=== PATIENT | female | born 2005 | race Caucasian/White ===

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

== ENCOUNTER 2024-05-14 13:15 | Inpatient (IN) | payer BC ==
[2024-05-14 14:01] LABS: Glucose,Whole Blood 91 mg/dL (70-110)
--- NOTE | 2024-05-14 14:33 | ED ---
General Adult HPI - General Source: patient, RN notes reviewed Mode of arrival: ambulatory Limitations: no limitations <Tracy Russell - Last Filed: 05/14/24 15:56> <Ruby Garland - Last Filed: 05/15/24 15:36> - General Chief complaint: Syncope Stated complaint: Dizziness Time Seen by Provider: 05/14/24 14:33 - History of Present Illness Initial comments: 19-year-old female presented the ER for evaluation of possible syncope or seizure. Patient states since October she will occasionally wake up in the morning and find herself on the ground. She reports she has numerous bite moralez on the sides of her tongue, along with bruising to her forehead and on her body. Patient states last night she woke up in the middle the night and found her bed to be soiled. She believes this was urine. She has no history of seizures but does admit to a history of POTS. She is unsure if she tries to stand up in the middle the night and falls or has a seizure causing her to fall out of bed. She does not remember waking up in the middle the night or how she got there. Patient reports yesterday while at work her boss instructed her to sit down as she was stating she felt dizzy. Her boss states that she sat there for 2 hours "gazed". Patient does not remember this. Patient reports pain to the top of her head currently. She has no dizziness, lightheadedness, nausea, vomiting, chest pain, shortness of breath, abdominal pain, fevers or chills. No other complaints. (Tracy Russell) - Related Data Home Medications Medication Instructions Recorded Confirmed No Known Home Medications 05/14/24 05/14/24 Allergies Allergy/AdvReac Type Severity Reaction Status Date / Time latex Allergy Rash/Hives Verified 05/14/24 17:27 Sulfa (Sulfonamide Allergy Rash/Hives Verified 05/14/24 17:27 Antibiotics) Review of Systems ROS Other: All systems not noted in ROS Statement are negative. <Tracy Russell - Last Filed: 05/14/24 15:56> ROS Other: All systems not noted in ROS Statement are negative. <Ruby Garland - Last Filed: 05/15/24 15:36> ROS Statement: Those systems with pertinent positive or pertinent negative responses have been documented in the HPI. Past Medical History Additional Past Medical History / Comment(s): POTS, eating disorder Past Surgical History: Adenoidectomy Past Psychological History: Anxiety, Depression Smoking Status: Vaper Past Alcohol Use History: None Reported Past Drug Use History: Marijuana <Tracy Russell - Last Filed: 05/14/24 15:56> General Exam Limitations: no limitations General appearance: alert, in no apparent distress Head exam: Present: atraumatic, normocephalic, normal inspection, other (Healing contusion to left congregation) Eye exam: Present: normal appearance, PERRL, EOMI. Absent: scleral icterus, conjunctival injection, periorbital swelling Pupils: Present: normal accommodation ENT exam: Present: normal exam, normal oropharynx (Healed scars on the side of tongue), mucous membranes moist Neck exam: Present: normal inspection. Absent: tenderness, meningismus, lymphadenopathy Respiratory exam: Present: normal lung sounds bilaterally. Absent: respiratory distress, wheezes, rales, rhonchi, stridor Cardiovascular Exam: Present: regular rate, normal rhythm, normal heart sounds. Absent: systolic murmur, diastolic murmur, rubs, gallop, clicks Neurological exam: Present: alert, oriented X3, CN II-XII intact Skin exam: Present: warm, dry, intact, normal color. Absent: rash <Tracy Russell - Last Filed: 05/14/24 15:56> Course Vital Signs 05/14/24 05/14/24 05/14/24 13:37 15:40 16:01 Temperature 98.5 F Pulse Rate 96 75 122 H Respiratory 16 18 14 Rate Blood Pressure 152/100 126/70 130/69 O2 Sat by Pulse 98 99 98 Oximetry 05/14/24 05/14/24 05/14/24 17:41 19:08 21:30 Temperature Pulse Rate 75 68 69 Respiratory 18 18 20 Rate Blood Pressure 130/69 93/62 106/52 O2 Sat by Pulse 95 97 98 Oximetry EKG Findings - EKG Comments: EKG Findings:: EKG taken at 15: 17 showing a sinus rhythm with sinus arrhythmia. No acute ST segment or T wave abnormalities. Normal axis. Ventricular rate 86, RI interval 134, QRS duration 88, QT/QTc 355/399. <Tracy Russell - Last Filed: 05/14/24 15:56> - EKG Comments: EKG Findings:: Sinus tachycardia, rate 101 bpm, RI interval 136 ms, QRS duration 96 ms, QT/QTc 339/397 ms, normal axis, no ST elevations or depressions, T wave does appear somewhat enlarged in lead V3, no delta waves or Brugada pattern present <Ruby Garland - Last Filed: 05/15/24 15:36> Medical Decision Making - Lab Data Result diagrams: 05/14/24 15:04 05/14/24 15:04 <Tracy Russell - Last Filed: 05/14/24 15:56> - Lab Data Result diagrams: 05/15/24 08:07 05/15/24 08:07 <Ruby Garland - Last Filed: 05/15/24 15:36> - Medical Decision Making Was pt. sent in by a medical professional or institution (, PA, MACH[employer], urgent care, hospital, or [facility]...) When possible be specific @ -No Did you speak to anyone other than the patient for history (EMS, parent, family, police, friend...)? What history was obtained from this source @ -No Did you review nursing and triage notes (agree or disagree)? Why? @ -I reviewed and agree with nursing and triage notes Were old charts reviewed (outside hosp., previous admission, EMS record, old EKG, old radiological studies, urgent care reports/EKG's, [facility] records)? Report findings @ -No old charts were reviewed Differential Diagnosis (chest pain, altered mental status, abdominal pain women, abdominal pain men, vaginal bleeding, weakness, fever, dyspnea, syncope, headache, dizziness, GI bleed, back pain, seizure, CVA, palpatations, mental health, musculoskeletal)? @ -Differential Seizure:Recurrent seizure disorder, febrile seizure, alcohol withdrawal, stimulants, meningitis, encephalitis, intercranial hemorrhage, intracranial tumor, stroke, eclampsia, thyrotoxicosis, hypocalcemia, hyponatremia, hypernatremia, hypomagnesemia, psychogenic, this is not meant to be an all-inclusive list. EKG interpreted by me (3pts min.). @ -As above X-rays interpreted by me (1pt min.). @ -Pending CT interpreted by me (1pt min.). @ -Pending U/S interpreted by me (1pt. min.). @ -None done What testing was considered but not performed or refused? (CT, X-rays, U/S, labs)? Why? @ -None What meds were considered but not given or refused? Why? @ -None Did you discuss the management of the patient with other professionals (professionals i.e. DrJeanne, PA, [employer], lab, RT, psych nurse, licensed social worker, certified ophthalmic medical technician, teacher, housing officer, disease case manager)? Give summary @ -No Was smoking cessation discussed for >3mins.? @ -No Was critical care preformed (if so, how long)? @ -No Were there social determinants of health that impacted care today? How? (Homelessness, low income, unemployed, alcoholism, drug addiction, tra nsportation, low edu. Level, literacy, decrease access to med. care, prison, rehab)? @ -No Was there de-escalation of care discussed even if they declined (Discuss DNR or withdrawal of care, Hospice)? DNR status @ -No What co-morbidities impacted this encounter? (DM, HTN, Smoking, COPD, CAD, Cancer, CVA, ARF, Chemo, Hep., AIDS, mental health diagnosis, sleep apnea, morbid obesity)? @ -POTS Was patient admitted / discharged? Hospital course, mention meds given and route, prescriptions, significant lab abnormalities, going to OR and other pertinent info. @ -19-year-old female presenting to the ER for evaluation of possible syncope and/or seizure. History and physical exam completed. Upon evaluation, vitals stable. Patient in no signs of acute distress. No acute neurological findings on exam. Laboratory studies ordered along with CT brain and chest x-ray. Patient signed out to Dr. Garland pending disposition and CT results. (Tracy Russell) Patient signed out to myself by DEL. Witnessed by myself to having seizure-like activity in the hallway and was moved to a trauma bay for closer monitoring. Consisted of rhythmic clenching of her bilateral upper extremities, eye deviation, tongue biting, this did resolve spontaneously after about 1 minutes however patient postictal and trying to climb out of bed right afterwards so was given 2 mg IV Ativan. Additionally given keppra bolus of [address] brain. Repeat EKG showed no QTc prolongation. Pt sleeping comfortably in bed. ON reassessment patient is sleeping comfortably, she is drowsy however arousable. Discussed with her plan for admission she is agreeable w/ plan. CT brain negative for acute process. Patient discussed with Dr. Ureña and admitted in stable condition (Ruby Garland) - Lab Data Lab Results 05/14/24 05/14/24 05/14/24 Range/Units 14:00 15:04 15:04 WBC 19.0 H (4.0-11.0) k/uL RBC 4.68 (3.80-5.40) m/uL Hgb 13.4 (11.4-16.0) gm/dL Hct 42.2 (34.0-46.0) % MCV 90.2 (80.0-100.0) fL MCH 28.8 (25.0-35.0) pg MCHC 31.9 (31.0-37.0) g/dL RDW 13.8 (11.5-15.5) % Plt Count 200 (150-450) k/uL MPV 9.0 Neutrophils % 93 % Lymphocytes % 4 % Monocytes % 3 % Eosinophils % 1 % Basophils % 0 % Neutrophils # 17.6 H (1.3-7.7) k/uL Lymphocytes # 0.7 L (1.0-4.8) k/uL Monocytes # 0.5 (0-1.0) k/uL Eosinophils # 0.1 (0-0.7) k/uL Basophils # 0.0 (0-0.2) k/uL Sodium (137-145) mmol/L Potassium (3.5-5.1) mmol/L Chloride (98-107) mmol/L Carbon Dioxide (22-30) mmol/L Anion Gap mmol/L BUN (7-17) mg/dL Creatinine (0.52-1.04) mg/dL Est GFR (CKD-EPI)AfAm (>60 ml/min/1.73 sqM) Est GFR (CKD-EPI)NonAf (>60 ml/min/1.73 sqM) Glucose (74-99) mg/dL POC Glucose (mg/dL) 91 (70-110) mg/dL POC Glu Director [employer] Ortega Regan Plasma Lactic Acid Valentín (0.7-2.0) mmol/L Calcium (8.4-10.2) mg/dL Total Bilirubin (0.2-1.3) mg/dL AST (14-36) U/L ALT (4-34) U/L Alkaline Phosphatase (38-126) U/L Total Protein (6.3-8.2) g/dL Albumin (3.5-5.0) g/dL Urine Color Yellow Urine Appearance Clear (Clear) Urine pH 6.0 (5.0-8.0) Ur Specific [place] 1.029 (1.001-1.035) Urine Protein 1+ H (Negative) Urine Glucose (UA) Negative (Negative) Urine Ketones 4+ H (Negative) Urine Blood Negative (Negative) Urine Nitrite Negative (Negative) Urine Bilirubin Negative (Negative) Urine Urobilinogen <2.0 (<2.0) mg/dL Ur Leukocyte Esterase Negative (Negative) Urine RBC 1 (0-5) /hpf Urine WBC 1 (0-5) /hpf Ur Squamous Epith Cells 3 (0-4) /hpf Urine Bacteria Rare H (None) /hpf Urine Mucus Many H (None) /hpf Urine HCG, Qual (Not Detectd) Urine Opiates Screen (NotDetected) Ur Oxycodone Screen (NotDetected) Urine Methadone Screen (NotDetected) Ur Barbiturates Screen (NotDetected) U Tricyclic Antidepress (NotDetected) Ur Phencyclidine Scrn (NotDetected) Ur Amphetamines Screen (NotDetected) U Methamphetamines Scrn (NotDetected) U Benzodiazepines Scrn (NotDetected) Urine Cocaine Screen (NotDetected) U Marijuana (THC) Screen (NotDetected) Influenza Type A (PCR) (Not Detectd) Influenza Type B (PCR) (Not Detectd) RSV (PCR) (Not Detectd) SARS-CoV-2 (PCR) (Not Detectd) 05/14/24 05/14/24 05/14/24 Range/Units 15:04 15:04 15:04 WBC (4.0-11.0) k/uL RBC (3.80-5.40) m/uL Hgb (11.4-16.0) gm/dL Hct (34.0-46.0) % MCV (80.0-100.0) fL MCH (25.0-35.0) pg MCHC (31.0-37.0) g/dL RDW (11.5-15.5) % Plt Count (150-450) k/uL MPV Neutrophils % % Lymphocytes % % Monocytes % % Eosinophils % % Basophils % % Neutrophils # (1.3-7.7) k/uL Lymphocytes # (1.0-4.8) k/uL Monocytes # (0-1.0) k/uL Eosinophils # (0-0.7) k/uL Basophils # (0-0.2) k/uL Sodium 138 (137-145) mmol/L Potassium 4.4 (3.5-5.1) mmol/L Chloride 104 (98-107) mmol/L Carbon Dioxide 23 (22-30) mmol/L Anion Gap 11 mmol/L BUN 14 (7-17) mg/dL Creatinine 0.80 (0.52-1.04) mg/dL Est GFR (CKD-EPI)AfAm >90 (>60 ml/min/1.73 sqM) Est GFR (CKD-EPI)NonAf >90 (>60 ml/min/1.73 sqM) Glucose 90 (74-99) mg/dL POC Glucose (mg/dL) (70-110) mg/dL POC Glu Director [employer] Plasma Lactic Acid Valentín (0.7-2.0) mmol/L Calcium 9.9 (8.4-10.2) mg/dL Total Bilirubin 1.0 (0.2-1.3) mg/dL AST 37 H (14-36) U/L ALT 20 (4-34) U/L Alkaline Phosphatase 56 (38-126) U/L Total Protein 7.6 (6.3-8.2) g/dL Albumin 5.0 (3.5-5.0) g/dL Urine Color Urine Appearance (Clear) Urine pH (5.0-8.0) Ur Specific [place] (1.001-1.035) Urine Protein (Negative) Urine Glucose (UA) (Negative) Urine Ketones (Negative) Urine Blood (Negative) Urine Nitrite (Negative) Urine Bilirubin (Negative) Urine Urobilinogen (<2.0) mg/dL Ur Leukocyte Esterase (Negative) Urine RBC (0-5) /hpf Urine WBC (0-5) /hpf Ur Squamous Epith Cells (0-4) /hpf Urine Bacteria (None) /hpf Urine Mucus (None) /hpf Urine HCG, Qual Not Detected (Not Detectd) Urine Opiates Screen Not Detected (NotDetected) Ur Oxycodone Screen Not Detected (NotDetected) Urine Methadone Screen Not Detected (NotDetected) Ur Barbiturates Screen Not Detected (NotDetected) U Tricyclic Antidepress Not Detected (NotDetected) Ur Phencyclidine Scrn Not Detected (NotDetected) Ur Amphetamines Screen Not Detected (NotDetected) U Methamphetamines Scrn Not Detected (NotDetected) U Benzodiazepines Scrn Not Detected (NotDetected) Urine Cocaine Screen Not Detected (NotDetected) U Marijuana (THC) Screen Detected H (NotDetected) Influenza Type A (PCR) (Not Detectd) Influenza Type B (PCR) (Not Detectd) RSV (PCR) (Not Detectd) SARS-CoV-2 (PCR) (Not Detectd) 05/14/24 05/14/24 Range/Units 15:04 15:29 WBC (4.0-11.0) k/uL RBC (3.80-5.40) m/uL Hgb (11.4-16.0) gm/dL Hct (34.0-46.0) % MCV (80.0-100.0) fL MCH (25.0-35.0) pg MCHC (31.0-37.0) g/dL RDW (11.5-15.5) % Plt Count (150-450) k/uL MPV Neutrophils % % Lymphocytes % % Monocytes % % Eosinophils % % Basophils % % Neutrophils # (1.3-7.7) k/uL Lymphocytes # (1.0-4.8) k/uL Monocytes # (0-1.0) k/uL Eosinophils # (0-0.7) k/uL Basophils # (0-0.2) k/uL Sodium (137-145) mmol/L Potassium (3.5-5.1) mmol/L Chloride (98-107) mmol/L Carbon Dioxide (22-30) mmol/L Anion Gap mmol/L BUN (7-17) mg/dL Creatinine (0.52-1.04) mg/dL Est GFR (CKD-EPI)AfAm (>60 ml/min/1.73 sqM) Est GFR (CKD-EPI)NonAf (>60 ml/min/1.73 sqM) Glucose (74-99) mg/dL POC Glucose (mg/dL) (70-110) mg/dL POC Glu Director [employer] Plasma Lactic Acid Valentín 1.0 (0.7-2.0) mmol/L Calcium (8.4-10.2) mg/dL Total Bilirubin (0.2-1.3) mg/dL AST (14-36) U/L ALT (4-34) U/L Alkaline Phosphatase (38-126) U/L Total Protein (6.3-8.2) g/dL Albumin (3.5-5.0) g/dL Urine Color Urine Appearance (Clear) Urine pH (5.0-8.0) Ur Specific [place] (1.001-1.035) Urine Protein (Negative) Urine Glucose (UA) (Negative) Urine Ketones (Negative) Urine Blood (Negative) Urine Nitrite (Negative) Urine Bilirubin (Negative) Urine Urobilinogen (<2.0) mg/dL Ur Leukocyte Esterase (Negative) Urine RBC (0-5) /hpf Urine WBC (0-5) /hpf Ur Squamous Epith Cells (0-4) /hpf Urine Bacteria (None) /hpf Urine Mucus (None) /hpf Urine HCG, Qual (Not Detectd) Urine Opiates Screen (NotDetected) Ur Oxycodone Screen (NotDetected) Urine Methadone Screen (NotDetected) Ur Barbiturates Screen (NotDetected) U Tricyclic Antidepress (NotDetected) Ur Phencyclidine Scrn (NotDetected) Ur Amphetamines Screen (NotDetected) U Methamphetamines Scrn (NotDetected) U Benzodiazepines Scrn (NotDetected) Urine Cocaine Screen (NotDetected) U Marijuana (THC) Screen (NotDetected) Influenza Type A (PCR) Not Detected (Not Detectd) Influenza Type B (PCR) Not Detected (Not Detectd) RSV (PCR) Not Detected (Not Detectd) SARS-CoV-2 (PCR) Not Detected (Not Detectd) Disposition <Tracy Russell - Last Filed: 05/14/24 15:56> <Ruby Garland - Last Filed: 05/15/24 15:36> Clinical Impression: Seizure Disposition: ADMITTED IP TO THIS [facility] Condition: Good
[2024-05-14 15:19] LABS: Basophils % (A) 0 %; Eosinophils # (A) 0.1 k/uL (0-0.7); Eosinophils % (A) 1 %; HCT 42.2 % (34.0-46.0); HGB 13.4 gm/dL (11.4-16.0); Lymphocytes # (A) 0.7 k/uL (1.0-4.8); Lymphocytes % (A) 4 %; MCH 28.8 pg (25.0-35.0); MCHC 31.9 g/dL (31.0-37.0); MCV 90.2 fL (80.0-100.0); Monocytes # (A) 0.5 k/uL (0-1.0); Monocytes % (A) 3 %; Neutrophils # (A) 17.6 k/uL (1.3-7.7); Neutrophils % (A) 93 %; Platelet Count 200 k/uL (150-450); RBC 4.68 m/uL (3.80-5.40); RDW 13.8 % (11.5-15.5)
[2024-05-14] MEDS: SODIUM CHLORIDE 0.9% 1,000 ML IV STA (15:19)
[2024-05-14 15:24] LABS: Appearance,Urine Clear (Clear); Bacteria,Urine Rare /hpf; Bilirubin,Urine Negative (Negative); Blood,Urine Negative (Negative); Color,Urine Yellow; Glucose,Urine (UA) Negative (Negative); Ketones,Urine 4+ (Negative); Leukocyte Esterase,Urine Negative (Negative); Mucus,Urine Many /hpf; Nitrite,Urine Negative (Negative); Protein,Urine 1+ (Negative); RBC,Urine 1 /hpf (0-5); Specific Gravity,Urine 1.029 (1.001-1.035); Squamous Epithelial Cell,Urine 3 /hpf (0-4); Urobilinogen,Urine <2.0 mg/dL (<2.0); WBC,Urine 1 /hpf (0-5)
[2024-05-14 15:27] LABS: ALT 20 U/L (4-34); AST 37 U/L (14-36); African American GFR (CKD) >90 (>60 ml/min/1.73 sqM); Alkaline Phosphatase 56 U/L (38-126); Anion Gap 11 mmol/L; Blood Urea Nitrogen 14 mg/dL (7-17); Calcium 9.9 mg/dL (8.4-10.2); Carbon Dioxide 23 mmol/L (22-30); Chloride 104 mmol/L (98-107); Glucose 90 mg/dL (74-99); Non-African American GFR(CKD) >90 (>60 ml/min/1.73 sqM); Potassium 4.4 mmol/L (3.5-5.1); Sodium 138 mmol/L (137-145); Total Protein 7.6 g/dL (6.3-8.2)
[2024-05-14 15:37] LABS: Amphetamine Screen,Urine Not Detected (NotDetected); Barbiturate Screen,Urine Not Detected (NotDetected); Benzodiazepines Screen,Urine Not Detected (NotDetected); Cocaine Screen,Urine Not Detected (NotDetected); Methadone Screen, Urine Not Detected (NotDetected); Opiate Screen,Urine Not Detected (NotDetected); Oxycodone Screen, Urine Not Detected (NotDetected); Phencyclidine Screen,Urine Not Detected (NotDetected); Tricyclic Antidepressant,Urine Not Detected (NotDetected); Urn Cannabinoid Scrn Detected (NotDetected)
[2024-05-14] MEDS: ONDANSETRON 4 MG/2 ML VIAL IVP STA (16:01)
[2024-05-14] MEDS: SODIUM CHLORIDE 0.9% 1,000 ML IV ONE (16:01)
[2024-05-14] MEDS: LORazepam 2 MG/ML INJ IV STA ×2 (16:04→18:31)
--- NOTE | 2024-05-14 16:18 | XR ---
EXAMINATION TYPE: XR chest 1V portable DATE OF EXAM: 05/14/2024 4:04 PM COMPARISON: None CLINICAL INDICATION: Female, 19 years old with history of syncope; [facility] TECHNIQUE: XR chest 1V portable Frontal view of the chest. FINDINGS: Lungs/Pleura: Airspace opacities within the left lung. There is no evidence of pleural effusion, foca l consolidation, or pneumothorax. Pulmonary vascularity: Unremarkable. Heart/mediastinum: Cardiomediastinal silhouette is unremarkable. Musculoskeletal: No acute osseous pathology. Other findings: None Lines/Tubes: IMPRESSION: Left midlung airspace opacities correlate for pneumonia. [facility], Workstation: [facility], 05/14/2024 4:16 PM
[2024-05-14] MEDS: levETIRAcetam IV 3,000 MG in SODIUM CHLORIDE 0.9% 250 ML IVPB ONE (16:24)
--- NOTE | 2024-05-14 17:22 | CT ---
EXAMINATION TYPE: CT brain wo con DATE OF EXAM: 05/14/2024 COMPARISON: none CLINICAL INDICATION: Female, 19 years old with history of poss seizure; PHH, possible seizure TECHNIQUE: CT of the brain performed without contrast with sagittal and coronal reformats. CT DLP: [address] CTDI: mGy Automated exposure control for dose reduction was used. FINDINGS: There is no acute intracranial hemorrhage, mass effect, or midline shift identified. The ventricles and sulci are within normal limits in size. The globes are intact and the visualized sinuses are eh ar. IMPRESSION: No acute intracranial hemorrhage, mass effect, or midline shift is seen. [facility], , 05/14/2024 5:20 PM
[2024-05-14] MEDS ORDERED: MAG HYDROX/AL HYDROX/SIMETH 30 ML CUP PO PRN (18:19)
[2024-05-14] MEDS ORDERED: ACETAMINOPHEN TAB 325 MG TAB PO PRN (18:19)
[2024-05-14] MEDS ORDERED: NALOXONE 0.4 MG/ML 1 ML VIAL IV PRN (18:19)
[2024-05-14] MEDS ORDERED: KETOROLAC 15 MG/ML 1 ML VIAL IVP PRN (18:19)
[2024-05-14] MEDS ORDERED: ALPRAZolam 0.25 MG TAB PO PRN (18:19)
[2024-05-14] MEDS ORDERED: ONDANSETRON 4 MG/2 ML VIAL IVP PRN (18:19)
[2024-05-14] MEDS ORDERED: IBUPROFEN 400 MG TAB PO PRN (18:19)
[2024-05-14] MEDS ORDERED: CALCIUM CARBONATE 500 MG CHEWABLE PO PRN (18:19)
[2024-05-14] MEDS: DEXTROSE 5%-0.45% NACL 1,000 ML IV SCH (19:44)
--- NOTE | 2024-05-14 20:56 | P.HPIM ---
History of Present Illness H&P Date: 05/14/24 Chief Complaint: Seizure Patient is a 19-year-old female with past medical history of POTS, eating disorder, depression and anxiety presented to the emergency department for e valuation of possible syncope/seizure. Patient reports that since October of this year patient has had at least 12 episodes where she would wake up and find herself on the ground. Patient also noted tongue biting whenever these episodes occur to the point that her tongue started to bleed. Patient denies any previous diagnosed history of seizure. Does not take any seizure medications at home. Patient notes that some of the episodes involve her staring blankly as noticed by her boss yesterday with the episode lasting a few minutes. The patient does recall a prodrome of anxiety and feeling strange just prior to this episode. She was reportedly confused for up to 2 hours after the episode. Patient does report feeling nauseated after these episodes. Majority of these episodes have been unwitnessed as patient lives by herself. Patient reports that whenever this occurs she would lose consciousness and does not remember anything afterwards. Each episode usually last for a few minutes. Patient also reported that this morning she noticed her bed was soiled covered in urine. This is the first time she reported urinary incontinence. Patient currently endorses shortness of breath, headache. She currently denies fever, chills, chest pain, palpitations, nausea, vomiting, belly pain, dysuria, coughing/runny nose/sore throat, lower extremity tingling or numbness sensation. ED documentation reviewed. In the ED patient was treated with levetiracetam IV 3000 mg, ondansetron 4 mg IV x 1, lorazepam 2 mg IV x 2, 2 boluses of normal saline. Vitals on admission pulse rate 68, temperature 98.5, respiratory rate 18, blood pressure 93/62, O2 sat 97% on room air EKG independently interpreted as sinus tachycardia with ventricular rate of 101 bpm, QTc interval 397 ms CXR shows left midlung airspace opacities correlate for pneumonia. Brain CT shows no acute intracranial hemorrhage, mass effect, or midline shift Labs on admission show WBC 19.0, hemoglobin 13.4, hematocrit 42.2, platelets 200, sodium 138, potassium 4.4, chloride 104, carbon dioxide 23, BUN 14, creatinine 0.8, glucose 90, lactic acid 1.0, AST 37, ALT 20, alkaline phosphatase 56, total bili 1.0 UA shows 1+ urine protein, 4+ urine ketones, negative nitrite, negative leukocyte esterase Urine toxicology screen positive for marijuana Review of systems: Pertinent positives and negatives as discussed in HPI, a complete review of systems was performed and all other systems are negative. PMH: POTS, eating disorder, anxiety and depression PSH: Adenoidectomy FMH: No family history of seizures Allergies: Latex, sulfa drugs Social history: Tobacco: Vapor Alcohol: None reported Recreational drugs: Marijuana use Travel: No recent travel history Sick contacts: No sick contacts Physical examination: Vital signs reviewed General: nontoxic, no distress, appears at stated age Derm: warm, dry, intact Head: atraumatic, normocephalic, symmetric Eyes: EOMI, anicteric sclera Mouth: no lip lesion, mucus membranes moist, minor bruises noted on left and right side of the tongue. Cardiovascular: S1 S2 reg, no murmur Lungs: CTA bilateral, no rhonchi, no rales, no accessory muscle use Abdominal: soft, non-tender to palpation Extremities: No cyanosis, clubbing, or pedal edema. Neuro: Alert, Oriented, Gross neurological examination did not reveal any focal deficits. Cranial nerves II to XII grossly intact. Bilateral upper and lower extremity sensation intact. Bilateral upper and lower extremity muscle strength intact 5 out of 5. Psych: well appearing, appropriate affect Assessment/Plan: Patient is a 19-year-old female with past medical history of POTS, eating disorder, anxiety, and depression presented to the emergency department for evaluation of possible syncope/seizure. Patient will be admitted to inpatient medicine service. Active: #. Multiple episodes of syncope, likely newly diagnosed seizure disorder Brain CT shows no acute intracranial hemorrhage, mass effect or midline shift Levetiracetam IV 3000 mg given in the ED C/w Keppra 500 mg PO q12h Consult neurology Fall precautions, seizure precautions Cardiac monitoring Prolactin ordered by neurology Order EEG #. Lobar pneumonia Patient reported shortness of breath and found to have leukocytosis with left shift Chest x-ray shows left midlung airspace opacities correlate for pneumonia Initiate Rocephin IV 1 g every 24 hours with Azithromycin 500 mg po q24h Continue normal saline at 75 cc an hour Monitor morning CBC #. Elevated AST AST 37, ALT 20 Monitor morning CMP #. Leukocytosis, secondary to likely lobar pneumonia WBC 19.0 Monitor morning CBC Chronic: #. Anxiety Continue Xanax 0.5 mg p.o. every 6 hours as needed F: No restrictions E: Replete as needed N: Regular diet A: Ambulatory DVT prophylaxis: Lovenox 40 mg subcu daily The patient is admitted with an anticipated less than 2 midnight stay for evaluation of seizure/syncope CODE STATUS: Full code Discussed with: Patient Anticipated discharge place: Home Past Medical History Additional Past Medical History / Comment(s): POTS, eating disorder Past Surgical History: Adenoidectomy Past Psychological History: Anxiety, Depression Smoking Status: Vaper Past Alcohol Use History: None Reported Past Drug Use History: Marijuana Medications and Allergies Home Medications Medication Instructions Recorded Confirmed Type No Known Home Medications 05/14/24 05/14/24 History Allergies Allergy/AdvReac Type Severity Reaction Status Date / Time latex Allergy Rash/Hives Verified 05/14/24 17:27 Sulfa (Sulfonamide Allergy Rash/Hives Verified 05/14/24 17:27 Antibiotics) Physical Exam Vitals: Vital Signs Temp Pulse Resp BP Pulse Ox 05/14/24 19:08 68 18 93/62 97 05/14/24 17:41 75 18 130/69 95 05/14/24 16:01 122 H 14 130/69 98 05/14/24 15:40 75 18 126/70 99 05/14/24 13:37 98.5 F 96 16 152/100 98 Intake and Output 05/14/24 05/14/24 05/14/24 06:59 14:59 22:59 Other: Weight 54.431 kg Results CBC & Chem 7: 05/14/24 15:04 05/14/24 15:04 Labs: Abnormal Lab Results - Last 24 Hours (Table) 05/14/24 05/14/24 05/14/24 Range/Units 15:04 15:04 15:04 WBC 19.0 H (4.0-11.0) k/uL Neutrophils # 17.6 H (1.3-7.7) k/uL Lymphocytes # 0.7 L (1.0-4.8) k/uL AST 37 H (14-36) U/L Urine Protein 1+ H (Negative) Urine Ketones 4+ H (Negative) Urine Bacteria Rare H (None) /hpf Urine Mucus Many H (None) /hpf U Marijuana (THC) Screen (NotDetected) 05/14/24 Range/Units 15:04 WBC (4.0-11.0) k/uL Neutrophils # (1.3-7.7) k/uL Lymphocytes # (1.0-4.8) k/uL AST (14-36) U/L Urine Protein (Negative) Urine Ketones (Negative) Urine Bacteria (None) /hpf Urine Mucus (None) /hpf U Marijuana (THC) Screen Detected H (NotDetected)
[2024-05-14] MEDS: FAMOTIDINE 20 MG TAB PO SCH (21:17)
[2024-05-15] MEDS: levETIRAcetam 500 MG TAB PO SCH (02:47)
[2024-05-15] MEDS: SODIUM CHLORIDE 0.9% 1,000 ML IV SCH (02:47)
[2024-05-15 02:51] LABS: Glucose,Whole Blood 125 mg/dL (70-110)
[2024-05-15] MEDS: ENOXAPARIN 40 MG/0.4 ML SYRINGE SQ SCH (08:36)
[2024-05-15 09:14] LABS: Basophils % (A) 0 %; Eosinophils # (A) 0.1 k/uL (0-0.7); Eosinophils % (A) 1 %; HGB 11.5 gm/dL (11.4-16.0); Lymphocytes # (A) 1.2 k/uL (1.0-4.8); Lymphocytes % (A) 13 %; MCH 30.1 pg (25.0-35.0); MCHC 32.8 g/dL (31.0-37.0); MCV 91.8 fL (80.0-100.0); Mean Platelet Volume 8.8; Monocytes # (A) 0.5 k/uL (0-1.0); Monocytes % (A) 5 %; Neutrophils # (A) 7.3 k/uL (1.3-7.7); Neutrophils % (A) 80 %; Platelet Count 153 k/uL (150-450); RBC 3.81 m/uL (3.80-5.40); RDW 13.6 % (11.5-15.5); WBC 9.2 k/uL (4.0-11.0)
[2024-05-15 09:41] LABS: ALT 15 U/L (4-34); AST 29 U/L (14-36); African American GFR (CKD) >90 (>60 ml/min/1.73 sqM); Albumin 3.8 g/dL (3.5-5.0); Alkaline Phosphatase 51 U/L (38-126); Anion Gap 6 mmol/L; Blood Urea Nitrogen 10 mg/dL (7-17); Calcium 8.9 mg/dL (8.4-10.2); Carbon Dioxide 22 mmol/L (22-30); Chloride 109 mmol/L (98-107); Glucose 71 mg/dL (74-99); Non-African American GFR(CKD) >90 (>60 ml/min/1.73 sqM); Potassium 3.6 mmol/L (3.5-5.1); Sodium 137 mmol/L (137-145); Total Protein 5.9 g/dL (6.3-8.2)
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
[2024-05-15] MEDS: AZITHROMYCIN 500 MG in SODIUM CHLORIDE 0.9% 250 ML IVPB SCH (12:25)
[2024-05-15] MEDS: MAGNESIUM SULFATE-D5W PMX 1 GM in DEXTROSE/WATER 1 100ML.BAG IVPB SCH (13:36)
--- NOTE | 2024-05-15 15:05 | P.PN ---
Subjective Progress Note Date: 05/15/24 Hospital course: Patient is a pleasant 19-year-old female with a past medical history of POTS, eating disorder, depression, and anxiety. She presented to the emergency department on 05/14/2024 for evaluation of possible syncopal episode versus seizure. Patient reports recurrent episodes past 6 months in which she would wake up herself lying on the ground with her tongue bleeding, episodes where she has reportedly been staring off blankly reported by her boss lasting for multiple minutes at a time followed by reports of confusion and nausea for up to 2 hours after each episode. She finally decided to come to the emergency department for evaluation of this after awakening again with her tongue bleeding and this time her bed was soiled with urine which has never happened in the past. Upon arrival to our facility, patient underwent evaluation in the e mergency department. Vital signs upon arrival show blood pressure 152/100, heart rate 96, respiratory rate 16, temp 98.5 F, and SpO2 of 98% on room air. EKG was completed showing normal sinus rhythm at 86 bpm with no significant T wave or ST abnormality showing no signs of acute ischemia. Chest x-ray showing concerns of left midlung airspace opacities consistent with pneumonia. CT brain negative for acute intracranial process. Labs completed and reviewed. CBC showing leukocytosis with WBC count of 19.0. BMP unremarkable. Blood glucose was 91 via [id number]-[id number] glucose upon arrival and 90 with 1 4 BMP. Liver profile showing elevated AST of 37 otherwise normal findings. Urinalysis po sitive for protein and ketones negative for blood or infection. Urine hCG was negative for . Urine drug screen positive for marijuana otherwise negative. Influenza A, influenza B, RSV, and COVID PCR were negative. Patient received a loading dose of Keppra 3000 mg in the emergency department. She was admitted under our services with consultation to neurology. Physical exam: Was seen and fully evaluated at bedside this morning. She has had no further episodes of syncopal episode or seizure activity. She denies having any complaints at this time including headache, lightheadedness, dizziness, chest pain, palpitations, shortness of breath, or experiencing any numbness/tingling/weakness in her extremities. Patient denies any nausea or vomiting. Vital signs reviewed and stable. General: Nontoxic, no distress and appears stated age. Derm: Skin warm and dry, normal coloration for ethnicity. Head: Atraumatic, normocephalic and symmetric. Eyes: EOM's intact, no lid lag, and anicteric sclera Mouth: no lip lesions, mucus membranes moist Cardiovascular: regular rate and rhythm with normal S1S2, no murmur, positive posterior tibial pulses bilaterally, and cap refill < 2 seconds. Lungs: Respirations even, regular, and unlabored on room air. Lungs CTA bilaterally, no rhonchi, no rales, no wheezing, and no accessory muscle usage. Abdominal: soft, nontender to palpation, no guarding, no appreciable organomegaly Ext: ROM intact. No gross muscle atrophy, no edema, no contractures Neuro: Speech clear, face symmetrical and CN II-XII grossly intact with no noted focal neuro deficits Psych: Alert and oriented to person, place, time, and situation. Appropriate and pleasant affect. Assessment and Plan of Care: Multiple episodes of loss of consciousness, syncope versus newly diagnosed seizure disorder History of POTS -Patient received loading dose of Keppra 3000 mg IVPB and started on Keppra 500 mg twice daily. -Neurology consulted, appreciate recommendations. -Cardiology consulted, appreciate recommendations -Seizure and fall precautions to remain in place. -Telemetry monitoring. -Neurochecks -EEG to be completed -Orthostatic vital signs to be obtained. Community-acquired lobular pneumonia Leukocytosis, likely secondary to above -Oxygenation to be administered and titrated as needed to maintain SPO2 equal to or greater than 92% -Telemetry monitoring. -Monitor Pulse-oximetry -Duonebs as needed for SOB and/or wheezing -Incentive Spirometry -Antibiotics: Rocephin 2 g IVPB daily and Zithromax 500 mg daily. Elevated liver enzymes -Unclear etiology, possibly reactive patient denies alcohol use. Cannabis use disorder -Recommend cessation of use. Anxiety -Patient not on home medications, she was started on Xanax 0.25 mg every 6 hours as needed for anxiety upon admission. Data and imaging reviewed: Morning labs reviewed. CBC unremarkable showing resolution of leukocytosis with WBC count decreasing from 19.0 down to 9.2 this morning.. Coagulation profile showing mild hyperchloremia with chloride of 109 otherwise normal findings. Blood glucose slightly low at 71. Order placed for repeat [id number]-gd-[id number] glucose at this time. Vital signs reviewed. Blood pressure 103/71, heart rate 95, respiratory rate 16, temp 98.1 F, and SpO2 of 99% on room air. CODE STATUS full code DVT prophylaxis: Lovenox Anticipated discharge date: Pending clinical course Anticipated discharge place: Home Patient was seen independently by Nurse Pracitioner. This document was prepared using [employer] dictation software. Please allow for errors in awning frame maker, while rare they do occur. Howard Aguila [employer] rendered care for this patient independently, reviewed the findings and plan as documented in the note above and agree with plan. I did not physically speak with or examine the patient on this date. Objective - Vital Signs Vital signs: Vital Signs Temp 98.1 F 05/15/24 08:30 Pulse 122 H 05/15/24 08:46 Resp 16 05/15/24 08:30 BP 113/82 05/15/24 08:46 Pulse Ox 99 05/15/24 08:46 FiO2 Intake & Output 05/14/24 05/15/24 05/15/24 18:59 06:59 18:59 Intake Total 150 Balance 150 Weight 58.5 kg 61.5 kg Intake: IV 150 Sodium Chloride 0.9% 1, 150 000 ml @ 75 mls/hr IV . [id number] [facility] Rx#:[id number] Other: Voiding Method Toilet # Voids 1 - Labs CBC & Chem 7: 05/15/24 08:07 05/15/24 08:07 Labs: Abnormal Lab Results - Last 24 Hours (Table) 05/14/24 05/14/24 05/14/24 Range/Units 15:04 15:04 15:04 WBC 19.0 H (4.0-11.0) k/uL Neutrophils # 17.6 H (1.3-7.7) k/uL Lymphocytes # 0.7 L (1.0-4.8) k/uL POC Glucose (mg/dL) (70-110) mg/dL AST 37 H (14-36) U/L Urine Protein 1+ H (Negative) Urine Ketones 4+ H (Negative) Urine Bacteria Rare H (None) /hpf Urine Mucus Many H (None) /hpf U Marijuana (THC) Screen (NotDetected) 05/14/24 05/15/24 Range/Units 15:04 02:50 WBC (4.0-11.0) k/uL Neutrophils # (1.3-7.7) k/uL Lymphocytes # (1.0-4.8) k/uL POC Glucose (mg/dL) 125 H (70-110) mg/dL AST (14-36) U/L Urine Protein (Negative) Urine Ketones (Negative) Urine Bacteria (None) /hpf Urine Mucus (None) /hpf U Marijuana (THC) Screen Detected H (NotDetected)
--- NOTE | 2024-05-15 22:37 | EEG ---
ELECTROENCEPHALOGRAM REPORT REASON FOR STUDY: History of postural orthostatic tachycardia syndrome with multiple episodes of syncope versus seizure with tongue biting and 1 episode of urinary incontinence. CURRENT MEDICATIONS: Include, 1. Tylenol. 2. Maalox. 3. Xanax. 4. Tums. 5. Pepcid. 6. Motrin. 7. Toradol. 8. Narcan. 9. Zofran. 10.Keppra. CHARACTERIZATION OF RECORD: This 22-minute electroencephalogram was characterized by background rhythm of 9 to 10 hertz alpha to low beta rhythm, which was occipitally dominant as well as reactive to eye opening and eye closure. Photic stimulation was performed, but did not result in driving response in any frequency. Throughout the second portion of the electroencephalogram, there was evidence of sleep features such as vertex waves and sleep spindles. Hyperventilation was not performed. Throughout the electroencephalogram, there was no evidence of focal slowing, focal spikes, sharp waves, or epileptiform discharges. CONCLUSION: This is a normal 22-minute awake and drowsy electroencephalogram. MMODL / IJN: [id number] /
[2024-05-16] MEDS: levETIRAcetam 500 MG TAB PO SCH (09:02)
[2024-05-16 09:55] LABS: HCT 33.5 % (34.0-46.0); HGB 10.6 gm/dL (11.4-16.0); Hypochromasia Slight; MCH 29.7 pg (25.0-35.0); MCHC 31.7 g/dL (31.0-37.0); MCV 93.7 fL (80.0-100.0); Platelet Count 140 k/uL (150-450); RBC 3.58 m/uL (3.80-5.40); RDW 13.7 % (11.5-15.5); WBC 5.2 k/uL (4.0-11.0)
[2024-05-16 10:14] LABS: ALT 13 U/L (4-34); AST 20 U/L (14-36); African American GFR (CKD) >90 (>60 ml/min/1.73 sqM); Albumin 3.3 g/dL (3.5-5.0); Alkaline Phosphatase 42 U/L (38-126); Anion Gap 4 mmol/L; Blood Urea Nitrogen 12 mg/dL (7-17); Calcium 8.9 mg/dL (8.4-10.2); Carbon Dioxide 25 mmol/L (22-30); Chloride 110 mmol/L (98-107); Glucose 76 mg/dL (74-99); Magnesium 1.8 mg/dL (1.6-2.3); Non-African American GFR(CKD) >90 (>60 ml/min/1.73 sqM); Potassium 4.4 mmol/L (3.5-5.1); Sodium 139 mmol/L (137-145); Total Bilirubin 0.6 mg/dL (0.2-1.3); Total Protein 5.4 g/dL (6.3-8.2)
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
--- NOTE | 2024-05-16 16:05 | P.PN ---
Subjective Progress Note Date: 05/16/24 Hospital course: Patient is a pleasant 19-year-old female with a past medical history of POTS, eating disorder, depression, and anxiety. She presented to the emergency department on 05/14/2024 for evaluation of possible syncopal episode versus seizure. Patient reports recurrent episodes past 6 months in which she would wake up herself lying on the ground with her tongue bleeding, episodes where she has reportedly been staring off blankly reported by her boss lasting for multiple minutes at a time followed by reports of confusion and nausea for up to 2 hours after each episode. She finally decided to come to the emergency department for evaluation of this after awakening again with her tongue bleeding and this time her bed was soiled with urine which has never happened in the past. Upon arrival to our facility, patient underwent evaluation in the e mergency department. Vital signs upon arrival show blood pressure 152/100, heart rate 96, respiratory rate 16, temp 98.5 F, and SpO2 of 98% on room air. EKG was completed showing normal sinus rhythm at 86 bpm with no significant T wave or ST abnormality showing no signs of acute ischemia. Chest x-ray showing concerns of left midlung airspace opacities consistent with pneumonia. CT brain negative for acute intracranial process. Labs completed and reviewed. CBC showing leukocytosis with WBC count of 19.0. BMP unremarkable. Blood glucose was 91 via [id number] glucose upon arrival and 90 with 1 4 BMP. Liver profile showing elevated AST of 37 otherwise normal findings. Urinalysis po sitive for protein and ketones negative for blood or infection. Urine hCG was negative for . Urine drug screen positive for marijuana otherwise negative. Influenza A, influenza B, RSV, and COVID PCR were negative. Patient received a loading dose of Keppra 3000 mg in the emergency department. She was admitted under our services with consultation to neurology. Physical exam: Patient seen and fully evaluated at bedside she denies any further episodes of syncopal episodes/seizures since arrival. Patient currently denies having any complaints at this time. She reports concerns over taking antiepileptic medications discussed with patient recommendations to continue until prolonged EEG can be completed on outpatient basis as the symptoms are highly concerning for possible seizure activity. Patient also being worked up for POTS and car diology is following and awaiting recommendations. Vital signs reviewed and stable. General: Nontoxic, no distress and appears stated age. Derm: Skin warm and dry, normal coloration for ethnicity. Head: Atraumatic, normocephalic and symmetric. Eyes: EOM's intact, no lid lag, and anicteric sclera Mouth: no lip lesions, mucus membranes moist Cardiovascular: regular rate and rhythm with normal S1S2, no murmur, positive posterior tibial pulses bilaterally, and cap refill < 2 seconds. Lungs: Respirations even, regular, and unlabored on room air. Lungs CTA bilaterally, no rhonchi, no rales, no wheezing, and no accessory muscle usage. Abdominal: soft, nontender to palpation, no guarding, no appreciable organomegaly Ext: ROM intact. No gross muscle atrophy, no edema, no contractures Neuro: Speech clear, face symmetrical and CN II-XII grossly intact with no noted focal neuro deficits Psych: Alert and oriented to person, place, time, and situation. Appropriate and pleasant affect. Assessment and Plan of Care: Multiple episodes of loss of consciousness, syncope versus newly diagnosed seizure disorder History of POTS -Patient received loading dose of Keppra 3000 mg IVPB and started on Keppra 500 mg twice daily. -Neurology evaluated and stated EEG negative for seizure activity recommending evaluation by cardiology for other causes of recurrent syncope with history of POTS. -Cardiology consulted, appreciate recommendations -Seizure and fall precautions to remain in place. -Telemetry monitoring. -Neurochecks -EEG revealing a normal routine EEG, negative for epileptiform activity. -Orthostatic vital signs were negative for orthostatic hypotension but positive for postural tachycardia upon standing Community-acquired lobular pneumonia Leukocytosis, likely secondary to above -Oxygenation to be administered and titrated as needed to maintain SPO2 equal to or greater than 92% -Telemetry monitoring. -Monitor Pulse-oximetry -Duonebs as needed for SOB and/or wheezing -Incentive Spirometry -Antibiotics: Rocephin 2 g IVPB daily and Zithromax 500 mg daily. Elevated liver enzymes -Unclear etiology, possibly reactive patient denies alcohol use. Cannabis use disorder -Recommend cessation of use. Anxiety -Patient not on home medications, she was started on Xanax 0.25 mg every 6 hours as needed for anxiety upon admission. Data and imaging reviewed: Morning labs reviewed. CBC showing mild bicytopenia with hemoglobin of 10.6 and platelet count of 140. BMP showing hyperchloremia with chloride of 110 otherwise normal findings. Blood glucose 76. Liver profile unremarkable. Albumin slightly low at 3.3. Vital signs reviewed. Blood pressure 112/72, heart rate 109, respiratory rate 16, temp 98.2 F, and SpO2 of 99% on room air. CODE STATUS full code DVT prophylaxis: Lovenox Anticipated discharge date: Pending clinical course Anticipated discharge place: Home Patient was seen independently by Nurse Pracitioner. This document was prepared using [employer] dictation software. Please allow for errors in admissions nurse, while rare they do occur. Howard Aguila NP rendered care for this patient independently, reviewed the findings and plan as documented in the note above and agree with plan. I did not physically speak with or examine the patient on this date. Objective - Vital Signs Vital signs: Vital Signs Temp 98.4 F 05/15/24 21:04 Pulse 71 05/16/24 04:40 Resp 16 05/16/24 04:40 BP 103/62 05/16/24 04:40 Pulse Ox 99 05/16/24 04:40 FiO2 Intake & Output 05/15/24 05/16/24 05/16/24 18:59 06:59 18:59 Intake Total 240 Balance 240 Weight 59.5 kg Intake: Oral 240 Other: Voiding Method Toilet Toilet # Voids 1 2 - Labs CBC & Chem 7: 05/16/24 08:41 05/16/24 08:41 Labs: Abnormal Lab Results - Last 24 Hours (Table) 05/15/24 Range/Units 08:07 Chloride 109 H (98-107) mmol/L Glucose 71 L (74-99) mg/dL Total Protein 5.9 L (6.3-8.2) g/dL
[2024-05-17 08:51] VITALS: RESP 16; TEMP 97.5
[2024-05-17 11:25] VITALS: BP 136/98; PULSE 105
--- NOTE | 2024-05-17 11:54 | P.PN ---
Subjective Progress Note Date: 05/17/24 Hospital course: Patient is a pleasant 19-year-old female with a past medical history of POTS, eating disorder, depression, and anxiety. She presented to the emergency department on 05/14/2024 for evaluation of possible syncopal episode versus seizure. Patient reports recurrent episodes past 6 months in which she would wake up herself lying on the ground with her tongue bleeding, episodes where she has reportedly been staring off blankly reported by her boss lasting for multiple minutes at a time followed by reports of confusion and nausea for up to 2 hours after each episode. She finally decided to come to the emergency department for evaluation of this after awakening again with her tongue bleeding and this time her bed was soiled with urine which has never happened in the past. Upon arrival to our facility, patient underwent evaluation in the e mergency department. Vital signs upon arrival show blood pressure 152/100, heart rate 96, respiratory rate 16, temp 98.5 F, and SpO2 of 98% on room air. EKG was completed showing normal sinus rhythm at 86 bpm with no significant T wave or ST abnormality showing no signs of acute ischemia. Chest x-ray showing concerns of left midlung airspace opacities consistent with pneumonia. CT brain negative for acute intracranial process. Labs completed and reviewed. CBC showing leukocytosis with WBC count of 19.0. BMP unremarkable. Blood glucose was 91 via [id number] glucose upon arrival and 90 with 1 4 BMP. Liver profile showing elevated AST of 37 otherwise normal findings. Urinalysis po sitive for protein and ketones negative for blood or infection. Urine hCG was negative for . Urine drug screen positive for marijuana otherwise negative. Influenza A, influenza B, RSV, and COVID PCR were negative. Patient received a loading dose of Keppra 3000 mg in the emergency department. She was admitted under our services with consultation to neurology. Physical exam: Patient seen and fully evaluated at bedside she denies any further episodes of syncopal episodes/seizures since arrival. Patient currently denies having any complaints at this time. She was visiting with family/friend at bedside. Updated on plans for likely discharge later today once echocardiogram is read and she receives cardiac clearance. Patient denies having any other questions, needs, concerns, or complaints at this time. Vital signs reviewed and stable. General: Nontoxic, no distress and appears stated age. Derm: Skin warm and dry, normal coloration for ethnicity. Head: Atraumatic, normocephalic and symmetric. Eyes: EOM's intact, no lid lag, and anicteric sclera Mouth: no lip lesions, mucus membranes moist Cardiovascular: regular rate and rhythm with normal S1S2, no murmur, positive posterior tibial pulses bilaterally, and cap refill < 2 seconds. Lungs: Respirations even, regular, and unlabored on room air. Lungs CTA bilaterally, no rhonchi, no rales, no wheezing, and no accessory muscle usage. Abdominal: soft, nontender to palpation, no guarding, no appreciable organomegaly Ext: ROM intact. No gross muscle atrophy, no edema, no contractures Neuro: Speech clear, face symmetrical and CN II-XII grossly intact with no noted focal neuro deficits Psych: Alert and oriented to person, place, time, and situation. Appropriate and pleasant affect. Assessment and Plan of Care: Multiple episodes of loss of consciousness, syncope versus newly diagnosed seizure disorder History of POTS -Patient received loading dose of Keppra 3000 mg IVPB and started on Keppra 500 mg twice daily. -Neurology evaluated and stated EEG negative for seizure activity recommending evaluation by cardiology for other causes of recurrent syncope with history of POTS. -Cardiology consulted, appreciate recommendations -Seizure and fall precautions to remain in place. -Telemetry monitoring. -Neurochecks -EEG revealing a normal routine EEG, negative for epileptiform activity. -Orthostatic vital signs were negative for orthostatic hypotension but positive for postural tachycardia upon standing Community-acquired lobular pneumonia Leukocytosis, likely secondary to above -Oxygenation to be administered and titrated as needed to maintain SPO2 equal to or greater than 92% -Telemetry monitoring. -Monitor Pulse-oximetry -Duonebs as needed for SOB and/or wheezing -Incentive Spirometry -Antibiotics: Rocephin 2 g IVPB daily and Zithromax 500 mg daily. Elevated liver enzymes -Unclear etiology, possibly reactive patient denies alcohol use. Cannabis use disorder -Recommend cessation of use. Anxiety -Patient not on home medications, she was started on Xanax 0.25 mg every 6 hours as needed for anxiety upon admission. Data and imaging reviewed: Labs reviewed. CBC showing mild bicytopenia with hemoglobin of 10.6 and platelet count of 140. BMP showing hyperchloremia with chloride of 110 otherwise normal findings. Blood glucose 76. Liver profile unremarkable. Albumin slightly low at 3.3. Vital signs reviewed. Blood pressure 24/67, heart rate 86, respiratory rate 16, temp 97.5 F, and SpO2 of 100% on room air. CODE STATUS full code DVT prophylaxis: Lovenox Anticipated discharge date: Likely later today, awaiting echocardiogram results and clearance by route service manager. Anticipated discharge place: Home Patient was seen independently by Nurse Pracitioner. This document was prepared using [employer] dictation software. Please allow for errors in category analyst, while rare they do occur. Howard Aguila NP rendered care for this patient independently, reviewed the findings and plan as documented in the note above and agree with plan. I did not physically speak with or examine the patient on this date. Objective - Vital Signs Vital signs: Vital Signs Temp 98.0 F 05/16/24 20:12 Pulse 67 05/17/24 04:51 Resp 17 05/17/24 04:51 BP 103/62 05/17/24 04:51 Pulse Ox 99 05/17/24 04:51 FiO2 Intake & Output 05/16/24 05/17/24 05/17/24 18:59 06:59 18:59 Intake Total 598 Balance 598 Intake: Oral 598 Other: Voiding Method Toilet Toilet # Voids 2 2 - Labs CBC & Chem 7: 05/16/24 08:41 05/16/24 08:41 Labs: Abnormal Lab Results - Last 24 Hours (Table) 05/16/24 05/16/24 Range/Units 08:41 08:41 RBC 3.58 L (3.80-5.40) m/uL Hgb 10.6 L (11.4-16.0) gm/dL Hct 33.5 L (34.0-46.0) % Plt Count 140 L (150-450) k/uL Chloride 110 H (98-107) mmol/L Total Protein 5.4 L (6.3-8.2) g/dL Albumin 3.3 L (3.5-5.0) g/dL
--- NOTE | 2024-05-17 14:39 | P.DS ---
Providers Date of admission: 05/14/24 18:21 Expected date of discharge: 05/17/24 Attending physician: Loki Ureña Consults: 05/14/24 18:19 Consult Physician Urgent Consulting Provider: Tre Childs Consult Reason/Comments: Seizures Do you want consulting provider notified?: Yes 05/15/24 12:57 Consult Physician Routine Consulting Provider: Christopher Tipton Consult Reason/Comments: syncope Do you want consulting provider notified?: Yes Primary care physician: Stated None Hospital Course: Discharge Diagnosis: Multiple episodes of loss of consciousness, syncope versus newly diagnosed seizure disorder. Suspect seizure disorder. Patient was started on Keppra 500 mg twice daily. EEG was negative, however discussed with patient she will need to follow-up outpatient with neurologist for prolonged EEG. History of POTS. Orthostatic vital signs were negative for orthostatic hypotension but positive for postural tachycardia upon standing. Patient was evaluated by space sciences director and echocardiogram was completed currently pending report. However, per space sciences director patient is cleared from their perspective and to follow-up outpatient in 2 weeks. Community-acquired lobular pneumonia. Patient completed 3-day course of IV antibiotics with Rocephin and a Zithromax and is being discharged home on an additional 2 days of Augmentin. Leukocytosis, likely secondary to above. Resolved. Elevated liver enzymes. Unclear etiology, possibly reactive as patient denies any alcohol use. Elevated liver enzymes resolved. Bilirubin 0.6, AST 20, and ALT 13 with alkaline phosphatase of 42 on discharge. Cannabis use disorder. Recommend cessation of use. Anxiety Hospital course: Patient is a pleasant 19-year-old female with a past medical history of POTS, eating disorder, depression, and anxiety. She presented to the emergency department on 05/14/2024 for evaluation of possible syncopal episode versus seizure. Patient reports recurrent episodes past 6 months in which she would wake up herself lying on the ground with her tongue bleeding, episodes where she has reportedly been staring off blankly reported by her boss lasting for multiple minutes at a time followed by reports of confusion and nausea for up to 2 hours after each episode. She finally decided to come to the emergency department for evaluation of this after awakening again with her tongue bleeding and this time her bed was soiled with urine which has never happened in the past. Upon arrival to our facility, patient underwent evaluation in the emergency department. Vital signs upon arrival show blood pressure 152/100, heart rate 96, respiratory rate 16, temp 98.5 F, and SpO2 of 98% on room air. EKG was completed showing normal sinus rhythm at 86 bpm with no significant T wave or ST abnormality showing no signs of acute ischemia. Chest x-ray showing concerns of left midlung airspace opacities consistent with pneumonia. CT brain negative for acute intracranial process. Labs completed and reviewed. CBC showing leukocytosis with WBC count of 19.0. BMP unremarkable. Blood glucose was 91 via [id number] glucose upon arrival and 90 with 1 4 BMP. Liver profile showing elevated AST of 37 otherwise normal findings. Urinalysis positive for protein and ketones negative for blood or infection. Urine hCG was negative for . Urine drug screen positive for marijuana otherwise negative. Influenza A, influenza B, RSV, and COVID PCR were negative. Patient received a loading dose of Keppra 3000 mg in the emergency department. She was admitted under our services. Patient was monitored closely throughout hos pitalization and was evaluated both by neurologist and space sciences director as well. Patient was started on Keppra 500 mg twice daily. EEG was completed with no reported epileptiform discharges or seizure activity during time of testing. Patient recommended to continue Keppra and follow-up outpatient with neurologist for further evaluation and scheduling of a prolonged EEG. Patient was also evaluated by space sciences director as orthostatic vitals were negative for orthostatic hypotension but positive for postural tachycardia upon standing. Patient has known history of POTS. Cardiology evaluated and echocardiogram was completed. Echocardiogram report is not available at time of discharge, however per space sciences director patient cleared from their perspective for discharge. Patient to follow-up outpatient with PCP this week, neurologist in 1 to 2 weeks, and space sciences director in 2 weeks. Physical exam: Vital signs reviewed and stable. General: Nontoxic, no distress and appears stated age. Derm: Skin warm and dry, normal coloration for ethnicity. Head: Atraumatic, normocephalic and symmetric. Eyes: EOM's intact, no lid lag, and anicteric sclera Mouth: no lip lesions, mucus membranes moist Cardiovascular: regular rate and rhythm with normal S1S2, no murmur, positive posterior tibial pulses bilaterally, and cap refill < 2 seconds. Lungs: Respirations even, regular, and unlabored on room air. Lungs CTA bilaterally, no rhonchi, no rales, no wheezing, and no accessory muscle usage. Abdominal: soft, nontender to palpation, no guarding, no appreciable or ganomegaly Ext: ROM intact. No gross muscle atrophy, no edema, no contractures Neuro: Speech clear, face symmetrical and CN II-XII grossly intact with no noted focal neuro deficits Psych: Alert and oriented to person, place, time, and situation. Appropriate and pleasant affect. A total of 36 minutes of time were spent preparing this complex discharge summary. Pt was discharged on 05/17/2024 at 2:30 PM. Patient was seen independently by Nurse Practitioner. This document was prepared using [employer] dictation software. Please allow for errors in radiology transcriptionist while rare they do occur. Howard Aguila NP rendered care for this patient independently, reviewed the findings and plan as documented in the note above. I did not physically speak with or examine the patient on this date. Patient Condition at Discharge: Stable Plan - Discharge Summary Discharge Rx Participant: Yes New Discharge Prescriptions: New Amoxic-Pot Clav 875-125Mg [Augmentin 875-125] 1 tab PO Q12HR 2 Days #4 tab levETIRAcetam [Keppra] 500 mg PO DAILY 90 Days #180 tab Discharge Medication List Amoxic-Pot Clav 875-125Mg [Augmentin 875-125] 1 tab PO Q12HR 2 Days #4 tab 05/17/24 [Rx] levETIRAcetam [Keppra] 500 mg PO DAILY 90 Days #180 tab 05/17/24 [Rx] Follow up Appointment(s)/Referral(s): Luisito Melgar MD [Medical Doctor] - 1 Week [facility] [NON-STAFF] - 1 Week (PLEASE CALL FIRST THING TOMORROW MORNING WE DISCUSSED TO SCHEDULE OUTPATIENT FOLLOW UP AND ESTABILISHING CARE WITH A PCP.) Rachelle Mojica MD [REFERRING] - 1 Week (CALL AND MAKE DEL!) Patient Instructions/Handouts: New-Onset Seizure in Adults (DC) Activity/Diet/Wound Care/Special Instructions: Activity: As tolerated. Take breaks as needed. Diet: Resume regular diet and YESSSS girl go eat those Albanian fries!! Special Instructions: Take all of your medications as directed and remember to keep all of your doctor's appointments and follow-up as needed. Discussed you will need to schedule appointment with both PCP and neurologist. It is recommended you continue antiepileptic medications until further evaluation by neurologist and undergo a prolonged EEG. [place] state law states no driving until seizure free for 6 months. It is also advised to avoid climbing ladders, operating dangerous or heavy machinery or unsupervised swimming until seizure free for 6 months. Wishing you a very blessed and wonderful holiday season and a happy and healthy new year!!!! Thank you for allowing us to participate in your care, it was truly a pleasure having you for our patient!!! . Discharge Disposition: HOME SELF-CARE
--- NOTE | 2024-05-17 17:52 | CA ---
Transthoracic Echo Report Name: Mariam Robb Age: 19 Gender: F : 2005 Exam Date: 05/16/2024 15:37 Exam Location: [facility] Ht (in): 66 Wt (lb): 131 Ordering Physician: Luisito Melgar MD ([id number]) Attending/Referring Phys: Supervisor Varnish Rose Marie Limon RDCS Procedure CPT: Indications: Syncope Cardiac Hx: Technical Quality: Good Contrast 1: Total Dose (mL): Contrast 2: Total Dose (mL): MEASUREMENTS (Male / Female) Normal Values 2D ECHO LV Diastolic Diameter PLAX 4.8 cm 4.2 - 5.9 / 3.9 - 5.3 cm LV Systolic Diameter PLAX 3.2 cm IVS Diastolic Thickness 0.6 cm 0.6 - 1.0 / 0.6 - 0.9 cm LVPW Diastolic Thickness 0.7 cm 0.6 - 1.0 / 0.6 - 0.9 cm LV Relative Wall Thickness 0.3 RV Internal Dim ED PLAX 2.9 cm LVOT Diameter 2.2 cm Aortic Root Diameter 2.4 cm LV Diastolic Volume MOD 4C 88.8 cm??? LV Diastolic Length 4C 8.0 cm DOPPLER AV Peak Velocity 112.9 cm/s AV Peak Gradient 5.1 mmHg AV Mean Velocity 82.4 cm/s AV Mean Gradient 2.9 mmHg AV Velocity Time Integral 23.2 cm LVOT Peak Velocity 99.7 cm/s LVOT Peak Gradient 4.0 mmHg LVOT Velocity Time Integral 20.9 cm LVOT Stroke Volume 76.5 cm??? LVOT Stroke Volume Index 45.8 ml/m??? LVOT Cardiac Index 3909.9 cm???/min???m??? AV Area Cont Eq vti 3.3 cm??? AV Area Cont Eq pk 3.2 cm??? Mitral E Point Velocity 76.7 cm/s Mitral A Point Velocity 49.2 cm/s Mitral E to A Ratio 1.6 MV Deceleration Time 155.7 ms MV E' Velocity 7.7 cm/s Mitral E to MV E' Ratio 10.0 FINDINGS Left Ventricle Normal Left ventricular size, wall thickness, systolic function with no obvious regional wall motion abnormalities. Normal Left ventricular diastolic filling pattern. Left ventricular ejection fraction is estimated at 60 %. Right Ventricle Normal right ventricular size and function.. Right ventricular systolic pressure within normal limits. Right Atrium Normal right atrial size. Left Atrium Normal left atrial size. Interatrial septal aneurysm. Mitral Valve Structurally normal mitral valve. Mild mitral regurgitation. Aortic Valve Trileaflet aortic valve. No aortic valve stenosis or regurgitation. Tricuspid Valve Structurally normal tricuspid valve. Mild tricuspid regurgitation. Pulmonic Valve Trace pulmonic regurgitation. Structurally normal pulmonic valve. Pericardium No pericardial effusion. Aorta Normal size aortic root and proximal ascending aorta. CONCLUSIONS Left ventricular ejection fraction is estimated at 60 %. No obvious regional wall motion abnormalities. Normal right ventricular size and function.Mild mitral regurgitation. Mild tricuspid regurgitation. Previewed by: Dr Luisito Melgar (Electronically Signed) Final Date: 17 May 2024 17:51
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
== END 2024-05-17 14:56 | disposition home or self-care (01) | DRG 100 ==
LOC: EC 13:15 → 3SCARD 18:21
PROVIDERS: ADMIT Student in an Organized Health Care Education/Training Program; ATTEND Student in an Organized Health Care Education/Training Program
DX: G40.909 Epilepsy, unspecified, not intractable, without status epilepticus (principal); J18.1 Lobar pneumonia, unspecified organism; G90.A Postural orthostatic tachycardia syndrome [POTS]; F32.9 Major depressive disorder, single episode, unspecified; F41.1 Generalized anxiety disorder; F12.10 Cannabis abuse, uncomplicated; R74.8 Abnormal levels of other serum enzymes; N92.6 Irregular menstruation, unspecified; Z71.51 Drug abuse counseling and surveillance of drug abuser
CPT/HCPCS: 36415; 70450; 71045; 80053; 80306; 81001; 81025; 83605; 83735; 84146; 85025; 85027; 87636; 93005; 93306; 95819; 96361; 96365; 96375; 99285